=== PATIENT | female | born 1950 | race Two or more races ===

== ENCOUNTER 2018-03-16 07:10 | Day surgery (SDC) | payer OTHER | END 2018-03-16 11:55 | disposition home or self-care (01) | LOC: AMB-ENDOS 07:10 | DX: D12.3 Benign neoplasm of transverse colon (principal); D12.4 Benign neoplasm of descending colon; K64.1 Second degree hemorrhoids ==

== ENCOUNTER 2020-04-27 08:09 | Outpatient (CLI) | payer OTHER | END 2020-04-27 14:37 | disposition home or self-care (01) | LOC: SONOGRAMA 08:09 | PROVIDERS: ATTEND Pathology Anatomic Pathology & Clinical Pathology | DX: E04.1 Nontoxic single thyroid nodule (principal) ==